=== PATIENT | female | born 1990 | race Caucasian/White ===

== ENCOUNTER → 2018-07-24 | Outpatient (CLI) | payer OTHER ==
--- NOTE | 2018-07-24 14:01 | US ---
EXAMINATION TYPE: US OB anatomy transabd DATE OF EXAM: 07/24/2018 COMPARISON: NONE HISTORY: O36.63X0 Maternal care for excessive growth, anatomy. . TECHNIQUE: Transabdominal (TA) EXAM MEASUREMENTS: GESTATIONAL AGE / DATING Physician Established: (33 weeks/3 days) EDC: 09/08/2018 Dates by LMP: (Unknown Dates by First Scan: (This is first scan Dates by Current Scan for: (34 weeks/2 days) EDC: 09/02/2018 SURVEY IUP: Single PLACENTA: Posterior PREVIA: No previa KEILA: 13.29 cm Normal CERVICAL LENGTH (transabdominal: norm > 3.0cm): 3.78 cm BIOMETRY PRESENTATION: Vertex LIE: Longitudinal BPD: 8.96 cm 36 weeks / 2 days HC: 31.50 cm 35 weeks / 2 days AC: 30.36 cm 34 weeks / 2 days FL: 6.55 cm 33 weeks / 5 days ESTIMATED WEIGHT IN GRAMS: 2437 grams ESTIMATED WEIGHT IN LBS/OZ: 5 lbs. 6 oz. WEIGHT PERCENTAGE BASED ON ESTABLISHED DATE: 73.9 % HC/AC: 1.04 Normal FL/AC: 21.58 Normal HEART RATE: 144 bpm RHYTHM: Normal ANATOMY SEEN (within normal limits): * Lateral Vent (< 1 cm) 0.79 cm Choroid Plexus (bilateral) Midline Falx Four Chamber Heart Stomach Situs Diaphragm Kidneys (bilateral) Bladder Three Vessel Cord Longitudinal Spine Transverse Spine Legs (bilateral) ANATOMY SEEN (does not appear within normal limits): ANATOMY NOT SEEN: Cisterna Magna Nuchal Fold Cerebellum Cavus Septi Pellucidi Nose/Lips Arms (bilateral) Outflow tracts RVOT/LVOT Cord insert Above anatomy not seen due to advanced age and position spine up. IMPRESSION: Limited survey. Single viable intrauterine corresponding to ultrasound age 34 weeks 2 days with estimated date of delivery 09/02/2018
== END | disposition home or self-care (01) ==
LOC: RADUSWWP 12:02
PROVIDERS: ATTEND Obstetrics & Gynecology
DX: O36.63X0 Maternal care for excessive fetal growth, third trimester, not applicable or unspecified (principal); Z3A.34 34 weeks gestation of pregnancy
CPT/HCPCS: 76811

== ENCOUNTER 2018-08-19 20:00 | Inpatient (IN) | payer OTHER ==
[2018-08-19] MEDS ORDERED: CARBOPROST TROMETHAMINE 250 MCG/ML 1 ML AMP IM PRN (23:09)
[2018-08-19] MEDS ORDERED: OXYTOCIN 10 UNIT/ML 1 ML VIAL IM PRN (23:09)
[2018-08-19] MEDS ORDERED: METHYLERGONOVINE 0.2 MG/ML 1 ML AMP IM PRN (23:09)
[2018-08-19] MEDS ORDERED: TERBUTALINE 1 MG/ML VIAL SQ PRN (23:09)
[2018-08-19] MEDS ORDERED: LIDOCAINE 0.5% (PF) 5 MG/ML (50 ML SDV) SQ PRN (23:09)
[2018-08-19 23:20] VITALS: BMI 39.4
[2018-08-19 23:37] LABS: Basophils % (A) 0 %; Eosinophils # (A) 0.1 k/uL (0-0.7); Eosinophils % (A) 1 %; HCT 36.8 % (34.0-46.0); HGB 12.2 gm/dL (11.4-16.0); Lymphocytes # (A) 1.7 k/uL (1.0-4.8); Lymphocytes % (A) 20 %; MCH 29.2 pg (25.0-35.0); MCHC 33.1 g/dL (31.0-37.0); MCV 88.1 fL (80.0-100.0); Mean Platelet Volume 7.2; Monocytes # (A) 0.3 k/uL (0-1.0); Monocytes % (A) 4 %; Neutrophils # (A) 6.3 k/uL (1.3-7.7); Neutrophils % (A) 74 %; Platelet Count 206 k/uL (150-450); Poikilocytosis Slight; RBC 4.18 m/uL (3.80-5.40); RDW 15.1 % (11.5-15.5); WBC 8.5 k/uL (3.8-10.6)
[2018-08-19] MEDS: LACTATED RINGERS 1,000 ML IV SCH (23:39)
[2018-08-20] MEDS ORDERED: OXYTOCIN 30 UNITS/500 ML NS 30 UNIT in SALINE 1 500ML.BAG IV SCH (06:15)
--- NOTE | 2018-08-20 07:56 | P.HPOB ---
History of Present Illness H&P Date: 08/20/18 Chief Complaint: Intrauterine at term: Active labor Patient is a 27-year-old at 37 weeks gestation who ryes in active labor making cervical change, rosangela every 3-4 minutes. She was rosangela every 3-4 minutes for approximately 4 hours before arriving and at arrival she was dilated to 2 cm by the time I evaluated her and we'll admit her she was dila cj to 4 cm. Artificial rupture membranes was then performed and clear fluid is noted. heart tones revealed category 1 tracing with a baseline in the 140s to 150s. She transferred to my care late in at 32 weeks from 1, but she denied any problems or concerns during her . On physical exam vital signs are stable and afebrile. Heart regular, lungs clear, extremities are without pain. Abdomen is soft and nontender. Positive bowel sounds are noted. Abdomen is soft gravid uterus is noted. She is O+ blood type Rh and was negative. Rubella was immune. Hepatitis B surf markos antigen was negative. RPR was negative. Assessment intrauterine at term. Plan expect spontaneous vaginal delivery. Past Medical History Past Medical History: No Reported History History of Any Multi-Drug Resistant Organisms: None Reported Past Surgical History: No Surgical Hx Reported Past Anesthesia/Blood Transfusion Reactions: No Reported Reaction Past Psychological History: Anxiety, Depression Smoking Status: Never smoker Past Drug Use History: None Reported - Past Family History Mother Family Medical History: Cancer Additional Family Medical History / Comment(s): Breast and cervical cancer Medications and Allergies Home Medications Medication Instructions Recorded Confirmed Type Cetirizine HCl [Zyrtec] 10 mg PO DAILY 08/19/18 08/19/18 History Pnv No.95/Ferrous Fum/Folic AC 1 each PO DAILY 08/19/18 08/20/18 History [ Multivitamin Tablet] Allergies Allergy/AdvReac Type Severity Reaction Status Date / Time Penicillins Allergy Anaphylaxis Verified 08/19/18 20:11 Exam Osteopathic Statement: *. No significant issues noted on an osteopathic structural exam other than those noted in the History and Physical/Consult. Vital Signs Temp Pulse Resp BP Pulse Ox 08/19/18 23:11 98.0 F 16 08/19/18 20:30 98.6 F 84 17 147/70 100 Intake and Output 08/19/18 08/20/18 08/20/18 22:59 06:59 14:59 Other: # Voids 2 Weight 107.501 kg Results Result Diagrams: 08/19/18 23:15
[2018-08-20] MEDS ORDERED: ROPIVACAINE 5MG/ML 20ML VIAL ONE (08:46)
[2018-08-20] MEDS ORDERED: fentaNYL (PF) 50 MCG/ML 5 ML AMP ONE (08:46)
[2018-08-20] MEDS ORDERED: SODIUM CHLORIDE 0.9% 100 ML BAG ONE (08:46)
[2018-08-20] MEDS: LACTATED RINGERS 1,000 ML IV SCH (09:10)
[2018-08-20] MEDS ORDERED: ROPIVACAINE 100 MG, fentaNYL (PF) 200 MCG in SODIUM CHLORIDE 0.9% 76 ML EPIDURAL ONE (10:09)
[2018-08-20] MEDS ORDERED: ACETAMINOPHEN TAB 325 MG TAB PO PRN (12:06)
[2018-08-20] MEDS ORDERED: WITCH HAZEL 1 EACH MED..PAD TOPICAL PRN (12:06)
[2018-08-20] MEDS ORDERED: HYDROCORTISONE 2.5% RECTAL CREAM 30 GM TUBE RECTAL PRN (12:06)
[2018-08-20] MEDS ORDERED: diphenhydrAMINE 50 MG CAP PO PRN (12:06)
[2018-08-20] MEDS ORDERED: SIMETHICONE 80 MG CHEWABLE PO PRN (12:06)
[2018-08-20] MEDS ORDERED: BENZOCAINE/MENTHOL SPRAY 1 GM/SPRAY AEROSOL TOPICAL PRN (12:06)
[2018-08-20] MEDS ORDERED: ZOLPIDEM 5 MG TAB PO PRN (12:06)
[2018-08-20] MEDS ORDERED: diphenhydrAMINE 50 MG/ML 1 ML VIAL IVP PRN ×2 (12:06)
[2018-08-20] MEDS ORDERED: diphenhydrAMINE 25 MG CAP PO PRN (12:06)
[2018-08-20] MEDS ORDERED: LANOLIN CREAM 5 GM TUBE TOPICAL PRN (12:06)
[2018-08-20] MEDS ORDERED: OXYTOCIN 20 UNITS/1000 ML NS 1,000 ML IV SCH (12:15)
--- NOTE | 2018-08-20 12:55 | P.PROBDLV ---
Vaginal Delivery Note - . Vaginal Delivery Note: Normal vaginal delivery viable male infant Apgars 8 and 9 delivery time is 1133 hrs. Please see dictated H&P per Dr. Ruvalcaba on this patient's admission. Brief summary this is a pleasant 27-year-old 3 para 1 female 37-2/7 weeks gestation admitted last evening with spontaneous rupture membranes. Patient is 5 cm and stays at this for a bit and then is started on Pitocin for augmentation. She does request an epidural for pain control and therefore quickly progresses to complete. Patient pushes the head to the perineum posterior perineum was supported. Controlled delivery of the infant's head over the intact perineum. Mouth and nares are bulb suctioned there is a nuchal cord which is easily reduced. Gentle downward traction within delivery anterior posterior shoulder and rest this infant's body. Is a vigorous viable male Apgars 8 and 9 delivery time is 1133 hrs. After delivery of the infant the umbilical cord is allowed to quit pulsating is then doubly clamped and cut. The placenta is then spontaneously delivered intact. Inspection of perineum shows no lacerations no repairs required. Infant and mother stable delivery room. All counts correct 3.
[2018-08-20 16:00] VITALS: RESP 16
[2018-08-20] MEDS: SENNOSIDES-DOCUSATE SODIUM 1 EACH TAB PO SCH (20:57)
[2018-08-21] MEDS: IBUPROFEN 600 MG TAB PO PRN ×2 (00:19→09:15)
[2018-08-21] MEDS: LACTATED RINGERS 1,000 ML IV SCH (01:45)
[2018-08-21 08:32] VITALS: BP 132/82; PULSE 73; TEMP 97.9
[2018-08-21 09:34] LABS: Anisocytosis Slight; Basophils % (A) 0 %; Eosinophils # (A) 0.2 k/uL (0-0.7); Eosinophils % (A) 3 %; HCT 33.7 % (34.0-46.0); HGB 11.5 gm/dL (11.4-16.0); Lymphocytes # (A) 1.3 k/uL (1.0-4.8); Lymphocytes % (A) 17 %; MCH 30.5 pg (25.0-35.0); MCHC 34.1 g/dL (31.0-37.0); MCV 89.4 fL (80.0-100.0); Mean Platelet Volume 7.6; Monocytes # (A) 0.2 k/uL (0-1.0); Monocytes % (A) 3 %; Neutrophils # (A) 5.7 k/uL (1.3-7.7); Neutrophils % (A) 76 %; Platelet Count 182 k/uL (150-450); RBC 3.76 m/uL (3.80-5.40); RDW 16.6 % (11.5-15.5); WBC 7.5 k/uL (3.8-10.6)
[2018-08-21] MEDS: SENNOSIDES-DOCUSATE SODIUM 1 EACH TAB PO SCH (13:22)
== END 2018-08-21 13:30 | disposition home or self-care (01) | DRG 807 ==
LOC: FBPOP 20:00 → 4FBP 23:02
PROVIDERS: ADMIT Obstetrics & Gynecology; ATTEND Obstetrics & Gynecology
PROC: 10E0XZZ Delivery of Products of Conception, External Approach (ICD-10-PCS; principal; 2018-08-20)
PROC: 10907ZC Drainage of Amniotic Fluid, Therapeutic from Products of Conception, Via Natural or Artificial Opening (ICD-10-PCS; 2018-08-20)
PROC: 00HU33Z Insertion of Infusion Device into Spinal Canal, Percutaneous Approach (ICD-10-PCS; 2018-08-20)
PROC: 3E0R3NZ Introduction of Analgesics, Hypnotics, Sedatives into Spinal Canal, Percutaneous Approach (ICD-10-PCS; 2018-08-20)
DX: O69.81X0 Labor and delivery complicated by cord around neck, without compression, not applicable or unspecified (principal); Z37.0 Single live birth; Z3A.37 37 weeks gestation of pregnancy; Z79.899 Other long term (current) drug therapy; Z86.59 Personal history of other mental and behavioral disorders; Z88.0 Allergy status to penicillin; Z80.3 Family history of malignant neoplasm of breast; Z80.49 Family history of malignant neoplasm of other genital organs
CPT/HCPCS: 59025; 85025; 86850; 86900; 86901; 99213

== ENCOUNTER → 2019-10-24 | Outpatient (CLI) | payer OTHER ==
--- NOTE | 2019-10-25 09:31 | US ---
EXAMINATION TYPE: US pelvic complete DATE OF EXAM: 10/24/2019 COMPARISON: NONE CLINICAL HISTORY: 28-year-old female N92.0 excessive and frequent menses. Irregular cycles since her last delivery August 2018 TECHNIQUE: Transabdominal sonographic images of the pelvis Date of LMP: 10/13/2019 FINDINGS: EXAM MEASUREMENTS: Uterus: 9.3 x 5.2 x 4.7 cm Endometrial Stripe: 0.7 cm Right Ovary: 2.4 x 2.2 x 2.2 cm Left Ovary: 2.5 x 2.7 x 2.5 cm 1. Uterus: Anteverted and otherwise wnl 2. Endometrium: wnl 3. Right Ovary: wnl 4. Left Ovary: wnl 5. Bilateral Adnexa: wnl 6. Posterior cul-de-sac: wnl IMPRESSION: Unremarkable transabdominal sonographic examination of the pelvis.
== END | disposition home or self-care (01) ==
LOC: RADUSWWP 16:03
PROVIDERS: ATTEND Family Medicine
DX: N92.0 Excessive and frequent menstruation with regular cycle (principal)
CPT/HCPCS: 76856